=== PATIENT | male | born 1975 | race Caucasian/White ===

== ENCOUNTER 2018-03-15 12:14 | Day surgery (SDC) | payer OTHER ==
[~2018-03-15] VITALS: Ht 185.4 cm; Wt 108.9 kg
[2018-03-15] MEDS ORDERED: ZOLOFT25 MG PO (13:13)
[2018-03-15] MEDS ORDERED: ZOCOR20 MG PO (13:14)
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
--- NOTE | 2018-03-15 16:58 | NUR ---
03/15/18 1658 Sheets,Katja 1648 REPORT TO ROCKY FU.
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
== END 2018-03-15 20:00 | disposition home or self-care (01) ==
LOC: ED 12:14 → DS 14:44
PROVIDERS: Specialist; Surgery
PROC: 0QSHXZZ Reposition Left Tibia, External Approach (ICD-10-PCS; 2018-03-15)
PROC: 0QSHXZZ Reposition Left Tibia, External Approach (ICD-10-PCS; 2018-03-15)
PROC: 0KNT0ZZ Release Left Lower Leg Muscle, Open Approach (ICD-10-PCS; principal; 2018-03-15 15:00)
PROC: 0KNT0ZZ Release Left Lower Leg Muscle, Open Approach (ICD-10-PCS; 2018-03-15 15:00)
DX: S82.302A Unspecified fracture of lower end of left tibia, initial encounter for closed fracture (principal); S82.142A Displaced bicondylar fracture of left tibia, initial encounter for closed fracture; S82.832A Other fracture of upper and lower end of left fibula, initial encounter for closed fracture; S83.105A Unspecified dislocation of left knee, initial encounter; J45.909 Unspecified asthma, uncomplicated; K21.9 Gastro-esophageal reflux disease without esophagitis; Z23 Encounter for immunization; Z79.899 Other long term (current) drug therapy; V59.9XXA Occupant (driver) (passenger) of pick-up truck or van injured in unspecified traffic accident, initial encounter
CPT/HCPCS: 01470; 27550; 73560; 73590; 76000; 80053; 82150; 82550; 83690; 85025; 86850; 86900; 86901; 90471; 90715; 96365; 96375; 96376; 99284-25; C1713; G0480; J0330; J0692; J1100; J1170; J2405; J2704; J3010; J7060; J7120

== ENCOUNTER 2020-01-04 09:05 | Day surgery (SDC) | payer OTHER ==
[~2020-01-04] VITALS: Ht 182.9 cm; Wt 115.0 kg
[~2020-01-04 09:05] MED LIST: CELECOXIB200 MG PO; CYCLOBENZAPRINE10 MG PO; FLONASE ALLERG9.9 ML; NEURONTIN300 MG PO; WELLBUTRIN SR150 MG PO; XANAX XR2 MG PO; XANAX2 MG PO; ZOCOR20 MG PO; ZOLOFT25 MG PO; ZYRTEC10 MG PO
[2020-01-04] MEDS ORDERED: ASPIRIN325 MG PO (09:23)
--- NOTE | 2020-01-04 12:09 | NUR ---
01/04/20 1209 Katja Ferrera 1108 PT ARRIVED TO PACU ASLEEP AND SNORING. 1115 PT WOKE TO TACTILE STIMULI AND ROLLED TO BACK. PT DENIES PAIN AND NAUSEA AND IS ENCOUARGED TO PASS GAS. 1130 PT SITTING IN HIGH FOWLERS SIPPING SODA AND COFFEE. 1145 DC INSTRUCTIONS GIVEN AND PT GETTING DRESSED. CALLED FOR RIDE. 1157 PT DC VIA AND PAPERWORK GIVEN.
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
--- NOTE | 2020-01-09 12:40 | PATH ---
[facility] [address], [place] [address] Signed SPECIMEN(S): A ANTRUM/PYLORUS SPECIMEN(S): B COLON POLYP 15 CM SPECIMEN SOURCE: A. ANTRUM/PYLORUS B. COLON POLYP 15 CM CLINICAL HISTORY: Heartburn, anemia, cough, rectal bleeding. Postop: Gastritis, rectal polyp. MICROSCOPIC DESCRIPTION: Histologic sections of all submitted blocks are examined by light microscopy. These findings, together with the gross examination, support the pathologic diagnosis. FINAL PATHOLOGIC DIAGNOSIS: A. Stomach, antrum/pylorus, biopsy: - Antral mucosa with mild chronic, inactive gastritis. - Negative for Helicobacter organisms on HE stain. - Negative for dysplasia or malignancy. B. Colon, polyp at 15 cm, polypectomy: - Hyperplastic polyp. - Negative for dysplasia or malignancy. NAL:cml:C2NR GROSS DESCRIPTION: Two specimens are received in two containers, labeled "SM." A. The specimen, labeled "SM, 1," and designated on the requisition "antrum/pylorus," is received in formalin and consists of one deluna soft tissue fragment that measures 0.3 cm in greatest dimension. The specimen is entirely submitted in cassette (A1). B. The specimen, labeled "SM, 2," and designated on the requisition "colon polyp at 15 cm," is received in formalin and consists of one deluna soft tissue fragment that measures 0.3 cm in greatest dimension. The specimen is entirely submitted in cassette (B1). AT (under the direct supervision of a pathologist) The Gross Description was prepared using a voice recognition system. The report was reviewed for accuracy; however, sound-alike word errors, addition and/or deletions may occur. If there is any question about this report, please contact Client Services. PERFORMING LABORATORY: PATIENT NAME: CARLOS FLOWER PATHOLOGY DATE OF : 79 REPORT #: [id number] PHYSICIAN: JAMIE PATHOLOGY PCP: BREANNA ISRAEL MD REPORT IS CONFIDENTIAL AND NOT TO BE RELEASED WITHOUT AUTHORIZATION [facility] [address] [place], [place] [address] Signed The technical component was performed by [facility] [employer], [address] [place] [id number] (Knot Cutter: Jeanette Harris MD; CLIA# [id number]). Professional interpretation was performed by [facility], [facility], [address] [place] [id number] (CLIA# [id number]). Diagnostician: Khushboo Fermin MD Pathologist Electronically Signed 01/09/2020 Copies: ~ PATIENT NAME: CARLOS FLWOER PATHOLOGY DATE OF : 79 REPORT #: [id number] PHYSICIAN: JAMIE RAMOS PCP: BREANNA ISRAEL MD REPORT IS CONFIDENTIAL AND NOT TO BE RELEASED WITHOUT AUTHORIZATION
== END 2020-01-04 11:57 | disposition home or self-care (01) ==
LOC: OPS 09:05 → DS 09:05 → OPS 10:15
PROVIDERS: ATTEND Colon & Rectal Surgery
PROC: 0DB78ZX Excision of Stomach, Pylorus, Via Natural or Artificial Opening Endoscopic, Diagnostic (ICD-10-PCS; principal; 2020-01-04 10:15)
PROC: 0DBP8ZX Excision of Rectum, Via Natural or Artificial Opening Endoscopic, Diagnostic (ICD-10-PCS; 2020-01-04 10:15)
DX: K29.51 Unspecified chronic gastritis with bleeding (principal); K62.1 Rectal polyp; K44.9 Diaphragmatic hernia without obstruction or gangrene; D64.9 Anemia, unspecified; E78.00 Pure hypercholesterolemia, unspecified; J45.909 Unspecified asthma, uncomplicated; F32.9 Major depressive disorder, single episode, unspecified; F41.9 Anxiety disorder, unspecified; M19.90 Unspecified osteoarthritis, unspecified site; G47.10 Hypersomnia, unspecified; R73.01 Impaired fasting glucose; R12 Heartburn; R05 Cough; Z79.899 Other long term (current) drug therapy; Z79.82 Long term (current) use of aspirin; Z79.1 Long term (current) use of non-steroidal anti-inflammatories (NSAID); Z88.8 Allergy status to other drugs, medicaments and biological substances
CPT/HCPCS: 86677; J2704; J7121

== ENCOUNTER 2024-04-19 06:57 | Day surgery (SDC) | payer OTHER ==
[2024-04-14 16:05] VITALS: BP 126/82
[~2024-04-19] VITALS: Ht 182.9 cm; Wt 113.6 kg
--- NOTE | ~2024-04-19 | OR ---
[facility] [address] [place], [place] [address] Draft DATE OF OPERATION: 04/19/2024 SURGEON: Mauricio Ash MD PREOPERATIVE DIAGNOSES: Nasal obstruction due to septal deformity and inferior turbinate hypertrophy, CPAP intolerance. POSTOPERATIVE DIAGNOSES: Nasal obstruction due to septal deformity and inferior turbinate hypertrophy, CPAP intolerance. PROCEDURE: Septoplasty, cautery of the inferior turbinates, submucosal. ANESTHESIA: General LMA, MANAGER ADVANCED, Meet. PREOPERATIVE HISTORY: Carlos is a 49-year-old man with obstructive sleep apnea, CPAP difficulties due to nasal obstruction. He has been noted to have a septal deformity, which was obstructive and inferior turbinate hypertrophy causing CPAP intolerance. This has been unresponsive to appropriate medications and outpatient treatments and he is taken to the operating room for the above-mentioned procedures. OPERATIVE PROCEDURE AND FINDINGS: After informed consent, the patient was taken to the operating room, placed in the supine position where general LMA anesthesia was induced. The patient and procedure were verified. The patient received preoperative intranasal oxymetazoline and intravenous Ancef. Headlight speculum exam of the nasal cavity showed a significant septal deformity with a spur inferiorly on the right, which was obstructive on the left. 1% lidocaine with epinephrine was injected in the septal mucosa. The deviated septal bone and cartilage was then excised with the Kymberly. Airway was improved in this manner. The inferior turbinates were then cauterized with a long handle needle point cautery. Multiple passes starting on the right inferior turbinate on the medial and inferior surface starting anteriorly extending all the way back posteriorly. Multiple transmucosal passes with excellent shrinkage of the turbinate. Same procedure on the left inferior turbinate. Bleeding was controlled. Packing was then placed, trimmed Merocel equal amount one piece each side coated with Neosporin and tied anteriorly over PATIENT NAME: CARLOS FLOWER OPERATIVE REPORT DATE OF : 79 REPORT #: [id number] PHYSICIAN: MAURICIO ASH MD PCP: BREANNA ISRAEL MD REPORT IS CONFIDENTIAL AND NOT TO BE RELEASED WITHOUT AUTHORIZATION [facility] [address] [facility] [place], [place] [address] Draft a pad. The pharynx was suctioned clear of blood and secretions. The patient was then awakened, extubated, transported to the recovery room in good condition. No complications. BLOOD LOSS: Minimal. SPECIMEN: No specimen. DRAINS: No drains. PACKING: One piece of Merocel to each nostril. Mauricio Ash MD /MODL /[id number] Copies: ~ PATIENT NAME: CARLOS FLOWER OPERATIVE REPORT DATE OF : 79 REPORT #: [id number] PHYSICIAN: MAURICIO ASH MD PCP: BREANNA ISRAEL MD REPORT IS CONFIDENTIAL AND NOT TO BE RELEASED WITHOUT AUTHORIZATION
[~2024-04-19 06:57] MED LIST changes: +ALPRAZOLAM2 MG PO; +ASPIRIN325 MG PO; +FLUOXETINE HCL20 MG PO; +LACTATED RINGER'S 1,000 ML IV SCH; +LIDOCAINE 1% W/ EPI 1:100,000 20 ML MDV ONE; +LOVASTATIN20 MG PO; +OXYBUTYNIN CHLOR5 M1 PO; +PRAZOSIN HCL5 MG PO; +PROZAC10 MG PO; +ZOLOFT100 MG PO
[2024-04-19] MEDS ORDERED: LIDOCAINE HCL 1% 5 ML SDV INJ ONE (07:00)
[2024-04-19] MEDS ORDERED: IBLOOD GLUCOSE TEST STRIP 1 EA TEST VI PRN ×2 (07:00→08:45)
[2024-04-19] MEDS ORDERED: CEFAZOLIN SODIUM 2 GM/20 ML SYR IV SCH (07:00)
[2024-04-19 07:10] VITALS: BP 111/65
[2024-04-19] MEDS ORDERED: OXYMETAZOLINE HCL 30 ML BTL NAS SCH (07:30)
[2024-04-19] MEDS ORDERED: ADULT ASPIRIN R81 MG PO (07:32)
[2024-04-19] MEDS ORDERED: ACETAMINOPHEN 1,000 MG/100 ML VIAL ONE (07:45)
[2024-04-19] MEDS ORDERED: fentaNYL citrate 100 MCG/2 ML VIAL ONE (07:45)
[2024-04-19] MEDS ORDERED: propofoL 200 MG/20 ML VIAL ONE (07:45)
[2024-04-19] MEDS ORDERED: LIDOCAINE HCL 2% 5 ML SDV ONE (07:45)
[2024-04-19] MEDS ORDERED: ondansetron HCL 4 MG/2 ML VIAL ONE (07:45)
[2024-04-19] MEDS ORDERED: MIDAZOLAM HCL 2 MG/2 ML VIAL ONE (07:45)
[2024-04-19] MEDS ORDERED: DEXAMETHASONE SOD PHOS 4 MG/ML VIAL ONE ×2 (07:45→08:23)
[2024-04-19] MEDS ORDERED: ondansetron HCL 4 MG/2 ML VIAL IV PRN (08:45)
[2024-04-19] MEDS ORDERED: PROCHLORPERAZINE EDISYLATE 10 MG/2 ML VIAL IV PRN (08:45)
[2024-04-19] MEDS ORDERED: HYDROmorphone HCL 1 MG/ML SYR IV PRN (08:45)
[2024-04-19] MEDS ORDERED: droPERidol 5 MG/2 ML VIAL IV PRN (08:45)
[2024-04-19] MEDS ORDERED: fentaNYL citrate 50 MCG/ML SDV IV PRN (08:45)
[2024-04-19] MEDS ORDERED: NALOXONE HCL 0.4 MG SYR IV PRN (08:45)
--- NOTE | 2024-04-19 08:58 | NUR ---
04/19/24 0858 Tamica Huber 0832-PATIENT ARRIVED TO PACU ON 6L MASK NONAROUSABLE ORAL AIRWAY IN PLACE RR EVEN. SR HR 60'S. IVF INFUSING. PATIENTS HOB ELEVATED. PACKING TO NOSE AND GAUZE IN PLACE CDI.
[2024-04-19] MEDS ORDERED: HYDROCODONE/ACETA 5/325 TAB PO PRN (09:45)
[2024-04-19 10:38] VITALS: BP 109/73
--- NOTE | 2024-04-19 10:40 | NUR ---
PT ARRIVES FROM PACU TO DS VIA STRETCHER. PT REPORTS NO PAIN OR NAUSEA. PT IS VERY DROWSY, BUT RESPONSIVE TO VERBAL STIMULI AT THIS TIME. PT TOLERATING SMALL SIPS OF ICE WATER. PT ON 2L OF O2 VIA OXIMASK, RESPIRATIONS EVEN AND UNLABORED, NO SIGNS OF DISTRESS. CALL LIGHT WITHIN REACH. PT REPORTS NO FURTHER QUESTIONS OR NEEDS AT THIS TIME. CONT PULSE OX IN PLACE D/T HX OF DSAT IN PACU.
[2024-04-19] MEDS ORDERED: SEVOFLURANE 250 ML BTL INH ONE (11:12)
--- NOTE | 2024-04-19 11:16 | NUR ---
PT RESTING W/EYES CLOSED, RESPIRATIONS EVEN AND UNLABORED. NO SIGNS OF DISTRESS. PT REMAINS ON 2L OF O2 VIA OXYMASK. CPOX IN PLACE, 99%. CALL LIGHT WITHIN REACH.
[2024-04-19 11:46] VITALS: BP 107/68
--- NOTE | 2024-04-19 11:49 | NUR ---
IN PT ROOM FOR VS AND ASSESSMENT. PT REPORTS NO PAIN OR NAUSEA AT THIS TIME. PT REMAINS DROWSY AND RESPONSIVE TO VERBAL STIMULI AT THIS TIME. RESPIRATIONS EVEN AND UNLABORED, NO SIGNS OF DISTRESS. CALL LIGHT WITHIN REACH. NO ACUTE CHANGES FROM PREVIOUS SURGICAL SITE ASSESSMENT, REMAINS C/D/I. PT CALLED FOR UPDATE, PROVIDED. LET HER KNOW PT NOT READY TO GO HOME YET AT THIS TIME.
[2024-04-19 12:40] VITALS: BP 104/60
--- NOTE | 2024-04-19 12:45 | NUR ---
IN PT ROOM FOR VS AND ASSESSMENT. PT OPENING EYES AND TALKING TO . PT TITRATED TO RA AT THIS TIME, O2 REMAINS >90% VIA PULSE OX. PT STATES NO PAIN OR NAUSEA, TOLERATING SMALL SIPS OF ICE WATER. VS TAKEN. PT SITS AT EDGE OF BED AND REPORTS NO DIZZINESS/NAUSEA. PT STANDS AT BEDSIDE AND GAIT REMAINS STEADY. PT GETTING DRESSED AT THIS TIME W/ ASSISTANCE. CALL LIGHT WITHIN REACH.
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
== END 2024-04-19 13:05 | disposition home or self-care (01) ==
LOC: DS 06:57
PROVIDERS: ATTEND Otolaryngology
PROC: 095L7ZZ Destruction of Nasal Turbinate, Via Natural or Artificial Opening (ICD-10-PCS; principal; 2024-04-19 08:30)
PROC: 09SM0ZZ Reposition Nasal Septum, Open Approach (ICD-10-PCS; 2024-04-19 08:30)
DX: J34.2 Deviated nasal septum (principal); J34.89 Other specified disorders of nose and nasal sinuses; J34.3 Hypertrophy of nasal turbinates; G47.33 Obstructive sleep apnea (adult) (pediatric); J45.909 Unspecified asthma, uncomplicated; E78.00 Pure hypercholesterolemia, unspecified; Z79.899 Other long term (current) drug therapy; Z98.890 Other specified postprocedural states
CPT/HCPCS: 00160; J0131; J0690; J1100; J2003; J2250; J2405; J2704; J3010; J7121

== ENCOUNTER 2024-12-18 06:53 | Emergency (ER) | payer OTHER ==
[~2024-12-18] VITALS: Ht 182.9 cm; Wt 122.4 kg
[~2024-12-18 06:53] MED LIST changes: +ADULT ASPIRIN R81 MG PO; -LACTATED RINGER'S 1,000 ML IV SCH; -LIDOCAINE 1% W/ EPI 1:100,000 20 ML MDV ONE
[2024-12-18] MEDS ORDERED: KETOROLAC TROMETHAMINE 15 MG/ML VIAL IV ONE (07:15)
[2024-12-18 07:20] LABS: BASOPHILS 0.4 % (0.2-1.2); EOSINOPHILS 0.8 % (0.8-7.0); LYMPHOCYTES 25.0 % (21.8-53.1); MCH 30.0 PG (25.7-32.2); MCHC 34.5 g/dL (32.3-36.5); MCV 86.9 fL (79.0-92.2); MONOCYTES 5.8 % (5.3-12.2); NEUTROPHILS 67.4 % (34.0-67.9); RBC 4.50 M/uL (4.63-6.08)
[2024-12-18 07:35] LABS: ALT (SGPT) 40.0 U/L (14-59); AST (SGOT) 18.0 U/L (15-37); GLOMERULAR FILTRATION RATE,EST 92.0 mL/min (>60); PROTEIN, TOTAL 7.8 g/dL (6.4-8.2); UREA NITROGEN 25.0 mg/dL (7-18)
[2024-12-18] MEDS ORDERED: ACETAMINOPHEN 500 MG TAB PO ONE (07:45)
[2024-12-18] MEDS ORDERED: SODIUM CHLORIDE 0.9% 1,000 ML IV PRN (07:45)
[2024-12-18] MEDS ORDERED: MORPHINE SULFATE 10 MG/ML VIAL IV ONE (08:30)
[2024-12-18] MEDS ORDERED: TAMSULOSIN HCL 0.4 MG CAP PO ONE (08:30)
[2024-12-18 09:33] LABS: BLOOD/HGB, URINE MODERATE (Negative); KETONE, URINE NEGATIVE (Negative); LEUK ESTERASE, URINE NEGATIVE (negative); NITRITE, URINE NEGATIVE (negative)
[2024-12-18] MEDS ORDERED: MORPHINE SULFATE 10 MG/ML VIAL IV PRN (09:45)
[2024-12-18 09:53] LABS: BACTERIA, URINE NONE SEEN /hpf (negative); CASTS, URINE NONE SEEN \\lpf; CRYSTALS, URINE NONE SEEN (0-1+); EPITHELIAL CELLS, URINE 0 /lpf (0-1+); REFLEX CULTURE, URINE No (No)
[2024-12-18] MEDS ORDERED: FLOMAX0.4 MG PO (10:47)
[2024-12-18] MEDS ORDERED: ONDANSETRON ODT8 MG PO (10:47)
[2024-12-18] MEDS ORDERED: PERCOCET 5-3251 EACH PO (10:47)
[2024-12-18 11:05] VITALS: BP 145/89
== END 2024-12-18 11:04 | disposition home or self-care (01) ==
LOC: ED 06:53
PROVIDERS: Emergency Medicine
DX: N13.2 Hydronephrosis with renal and ureteral calculous obstruction (principal); Z79.899 Other long term (current) drug therapy
CPT/HCPCS: 36415; 74177; 80053; 81001; 85025; 96374; 96375; 99284-25; A9270; J1885; J2270; J2405; J7030; Q9967

== ENCOUNTER 2024-12-22 11:04 | Day surgery (SDC) | payer OTHER | END 2024-12-22 17:25 | disposition home or self-care (01) | LOC: DS 11:04 | PROC: 0TC78ZZ Extirpation of Matter from Left Ureter, Via Natural or Artificial Opening Endoscopic (ICD-10-PCS; principal; 2024-12-22) | PROC: 0T778DZ Dilation of Left Ureter with Intraluminal Device, Via Natural or Artificial Opening Endoscopic (ICD-10-PCS; 2024-12-22) | DX: N13.2 Hydronephrosis with renal and ureteral calculous obstruction (principal); Q64.33 Congenital stricture of urinary meatus; Z79.82 Long term (current) use of aspirin; Z79.899 Other long term (current) drug therapy; J45.909 Unspecified asthma, uncomplicated; Z88.8 Allergy status to other drugs, medicaments and biological substances; Z88.5 Allergy status to narcotic agent ==